=== PATIENT | female | born 1995 | race Two or more races ===

== ENCOUNTER 2023-08-21 09:54 | Outpatient (CLI) | payer OTHER | END 2023-08-21 09:57 | disposition home or self-care (01) | LOC: PRENATAL 09:54 | PROVIDERS: ATTEND Obstetrics & Gynecology Maternal & Fetal Medicine | DX: O36.80X0 Pregnancy with inconclusive fetal viability, not applicable or unspecified (principal); Z36.82 Encounter for antenatal screening for nuchal translucency; Z36.9 Encounter for antenatal screening, unspecified; Z14.8 Genetic carrier of other disease; O34.219 Maternal care for unspecified type scar from previous cesarean delivery; O99.210 Obesity complicating pregnancy, unspecified trimester; Z3A.14 14 weeks gestation of pregnancy ==

== ENCOUNTER 2023-10-05 10:03 | Outpatient (CLI) | payer OTHER | END 2023-10-05 10:05 | disposition home or self-care (01) | LOC: PRENATAL 10:03 | PROVIDERS: ATTEND Obstetrics & Gynecology Maternal & Fetal Medicine | DX: O99.210 Obesity complicating pregnancy, unspecified trimester (principal); O35.9XX0 Maternal care for (suspected) fetal abnormality and damage, unspecified, not applicable or unspecified; O35.3XX0 Maternal care for (suspected) damage to fetus from viral disease in mother, not applicable or unspecified; O44.00 Complete placenta previa NOS or without hemorrhage, unspecified trimester; Z3A.20 20 weeks gestation of pregnancy ==